=== PATIENT | male | born 1975 | race Caucasian/White ===

== ENCOUNTER → 2020-11-28 | Outpatient (CLI) | payer BC, OTHER | LOC: COL.RAD 06:36 | DX: R10.13 Epigastric pain (principal) ==

== ENCOUNTER → 2021-01-22 | Outpatient (CLI) | payer BC, OTHER | LOC: COL.RAD 12:27 | DX: M47.26 Other spondylosis with radiculopathy, lumbar region (principal); M48.061 Spinal stenosis, lumbar region without neurogenic claudication ==